=== PATIENT | female | born 1950 | race Caucasian/White ===

== ENCOUNTER 2018-07-26 14:06 | Emergency (ER) | payer MEDICARE, OTHER ==
--- NOTE | 2018-07-26 14:18 | EDM.PDOC ---
ED HPI GENERAL MEDICAL PROBLEM - General Chief Complaint: Lower Extremity Injury/Pain Stated Complaint: KNEE PAIN Time Seen by Provider: 07/26/18 14:11 Source of Information: Reports: Patient History Limitations: Reports: No Limitations - History of Present Illness INITIAL COMMENTS - FREE TEXT/NARRATIVE: History of present illness: []Patient complains of left knee pain is severe enough that she cannot walk on it. She's had a knee replacement in that knee 2 years ago in [facility] the [facility] by Dr. Nestor Kelley. 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 She thinks she may have twisted her knee at that time. Review of systems: As per history of present illness and below otherwise all systems reviewed and negative. Past medical history: As per history of present illness and as reviewed below otherwise noncontributory. Surgical history: As per history of present illness and as reviewed below otherwise noncontributory. Social history: No reported history of drug or alcohol abuse. Family history: As per history of present illness and as reviewed below otherwise noncontributory. Physical exam: General: Well developed, well nourished in NAD HEENT: Atraumatic, normocephalic, pupils reactive, negative for conjunctival pallor or scleral icterus, mucous membranes moist, throat clear, neck supple, nontender, trachea midline. Lungs: Clear to auscultation, breath sounds equal bilaterally, chest nontender. Heart: S1S2, regular, negative for clicks, rubs, or JVD. Abdomen: NABS, Soft, nondistended, nontender. Negative for masses or hepatosplenomegaly. Negative for costovertebral tenderness. Pelvis: Stable nontender. Genitourinary: Deferred. Rectal: Deferred. Extremities: Atraumatic, negative for cords or calf pain. Neurovascular unremarkable. Neuro: Awake, alert, oriented. Cranial nerves II through XII unremarkable. Cerebellum unremarkable. Motor and sensory unremarkable throughout. Exam nonfocal. Skin:warm and dry Diagnostics: X-ray left knee, WBC, sedimentation rate, CRP Therapeutics: Patient declined pain meds ED Course: Stable 16:11-consulted Dr. Lawler who will aspirate the knee in the ED. patient's white count from the knee aspirate reviewed by Dr. Lawler and he recommended she follow- up with her orthopedic surgeon this week. But does not need emergent transfer. Patient was informed and she will be able to follow-up with her doctor in his marked this week Impression: Left Knee pain Prescriptions: Declined patient states she has residual of opioids from the knee replacement Plan: Follow-up with your orthopedic surgeon in 1-2 days, return to ER immediately if symptoms worsen or change including, but not limited to, redness, swelling, increased pain or fevers. Definitive disposition and diagnosis as appropriate pending reevaluation and review of above. Left Knee Pain Score (Numeric/FACES): 8 - Related Data Allergies Allergy/AdvReac Type Severity Reaction Status Date / Time Sulfa (Sulfonamide Allergy Hives Verified 07/26/18 14:37 Antibiotics) Review of Systems - Review of Systems Review Of Systems: ROS reveals no pertinent complaints other than HPI. ED EXAM, GENERAL - Physical Exam Exam: See Below (See history of present illness) Course - Vital Signs Last Recorded V/S: Last Vital Signs Temp 98.6 F 07/26/18 14:32 Pulse 72 07/26/18 15:57 Resp 15 07/26/18 15:57 BP 115/75 07/26/18 15:57 Pulse Ox 92 L 07/26/18 15:57 - Orders/Labs/Meds Orders: Active Orders 24 hr Category Date Time Status CULTURE BODY FLUID + SMEAR [RM] Stat Lab 07/26/18 16:35 Received Labs: Laboratory Tests 07/26/18 07/26/18 07/26/18 Range/Units 14:56 14:56 14:56 WBC 17.30 H (4.0-11.0) K/uL RBC 3.62 L (4.30-5.90) M/uL Hgb 10.9 L (12.0-16.0) g/dL Hct 32.6 L (36.0-46.0) % MCV 90.1 (80.0-98.0) fL MCH 30.1 (27.0-32.0) pg MCHC 33.4 (31.0-37.0) g/dL RDW Std Deviation 44.6 (28.0-62.0) fl RDW Coeff of Amrit 14 (11.0-15.0) % Plt Count 307 (150-400) K/uL MPV 11.30 (7.40-12.00) fL Neut % (Auto) 83.7 H (48.0-80.0) % Lymph % (Auto) 8.4 L (16.0-40.0) % Mingo % (Auto) 7.7 (0.0-15.0) % Eos % (Auto) 0.1 (0.0-7.0) % Baso % (Auto) 0.1 (0.0-1.5) % Neut # (Auto) 14.5 H (1.4-5.7) K/uL Lymph # (Auto) 1.5 (0.6-2.4) K/uL Mingo # (Auto) 1.3 H (0.0-0.8) K/uL Eos # (Auto) 0.0 (0.0-0.7) K/uL Baso # (Auto) 0.0 (0.0-0.1) K/uL Nucleated RBC % 0.0 /100WBC Nucleated RBCs # 0 K/uL ESR 73 H (0-29) mm/hr C-Reactive Protein >12.00 (0.00-0.90) mg/dL Fluid Type Fluid Color Fluid Appearance Fluid WBC K/uL Fluid RBC M/uL Fluid Mononuclear Cell % Fl Polymorphonucl Cell % 07/26/18 Range/Units 16:35 WBC (4.0-11.0) K/uL RBC (4.30-5.90) M/uL Hgb (12.0-16.0) g/dL Hct (36.0-46.0) % MCV (80.0-98.0) fL MCH (27.0-32.0) pg MCHC (31.0-37.0) g/dL RDW Std Deviation (28.0-62.0) fl RDW Coeff of Amrit (11.0-15.0) % Plt Count (150-400) K/uL MPV (7.40-12.00) fL Neut % (Auto) (48.0-80.0) % Lymph % (Auto) (16.0-40.0) % Mingo % (Auto) (0.0-15.0) % Eos % (Auto) (0.0-7.0) % Baso % (Auto) (0.0-1.5) % Neut # (Auto) (1.4-5.7) K/uL Lymph # (Auto) (0.6-2.4) K/uL Mingo # (Auto) (0.0-0.8) K/uL Eos # (Auto) (0.0-0.7) K/uL Baso # (Auto) (0.0-0.1) K/uL Nucleated RBC % /100WBC Nucleated RBCs # K/uL ESR (0-29) mm/hr C-Reactive Protein (0.00-0.90) mg/dL Fluid Type SYN Fluid Color RED Fluid Appearance BLOODY Fluid WBC 1.05 K/uL Fluid RBC 0.11 M/uL Fluid Mononuclear Cell 16.7 % Fl Polymorphonucl Cell 83.3 % Departure - Departure Time of Disposition: 18:59 Disposition: Home, Self-Care 01 Condition: Good Clinical Impression: Knee pain, left - Discharge Information *PRESCRIPTION DRUG MONITORING PROGRAM REVIEWED*: No *COPY OF PRESCRIPTION DRUG MONITORING REPORT IN PATIENT AMISHA: No Referrals: PCP,None [Primary Care Provider] - Forms: ED Department Discharge Additional Instructions: The following information is given to patients seen in the emergency department who are being discharged to home. This information is to outline your options for follow-up care. We provide all patients seen in our emergency department with a follow-up referral. The need for follow-up, as well as the timing and circumstances, are variable depending upon the specifics of your emergency department visit. If you don't have a primary care physician on staff, we will provide you with a referral. We always advise you to contact your personal physician following an emergency department visit to inform them of the circumstance of the visit and for follow-up with them and/or the need for any referrals to a consulting specialist. The emergency department will also refer you to a specialist when appropriate. This referral assures that you have the opportunity for follow-up care with a specialist. All of these measure are taken in an effort to provide you with optimal care, which includes your follow-up. Under all circumstances we always encourage you to contact your private physician who remains a resource for coordinating your care. When calling for follow-up care, please make the office aware that this follow-up is from your recent emergency room visit. If for any reason you are refused follow-up, please contact the [facility] Emergency Department at and asked to speak to the emergency department charge nurse. Follow-up with your orthopedic surgeon Dr. Nestor Kelley this week in [facility]. The ER if symptoms worsen or change. - My Orders Last 24 Hours: My Active Orders 07/26/18 16:35 CULTURE BODY FLUID + SMEAR [RM] Stat - Assessment/Plan Last 24 Hours: My Active Orders 07/26/18 16:35 CULTURE BODY FLUID + SMEAR [RM] Stat
--- NOTE | 2018-07-26 15:22 | CR ---
EXAMINATION: Left knee HISTORY: Pain COMPARISON: None TECHNIQUE: 3 views FINDINGS/IMPRESSION: There is no acute osseous abnormality, dislocation, or fracture. Left total knee hardware is demonstrated position and alignment. No joint effusion or significant soft tissue swelling.
--- NOTE | 2018-07-27 13:06 | HP ---
DATE OF : 1950 PRIMARY CARE PHYSICIAN: None PCP SUBJECTIVE: The patient is a 67-year-old female, who underwent a left total knee replacement 2 years ago, and it was marked by Dr. Nestor Kelley. She was looking at her melanoma lesion on her left foot and may have twisted her knee at that time 2 days ago. She began having more pain yesterday with difficulty walking and ambulating. She had a history of UTI one month ago and took an antibiotic which may have been clindamycin, but she is unsure. She has no other pain in other joints. She has felt a little feverish. No other constitutional symptoms. PAST MEDICAL HISTORY: In the chart. PHYSICAL EXAMINATION: GENERAL: No apparent distress. Alert and oriented x3. HEENT: Mucous membranes moist. Sclerae anicteric. LUNGS: Equal and symmetric expansion. CARDIOVASCULAR: Regular rate and rhythm with 2+ dorsalis pedis pulses to the left lower extremity. EXTREMITIES: Left knee demonstrates some warmth to touch with no erythema. There is a small joint effusion. She has pain to range of motion and pain to palpation over the proximal tibia as well as over the knee joint. She has a stable ligamentous exam. There is no swelling distally. She has palpable pulses. Normal sensation and motor distally. IMAGING: X-rays of the left knee demonstrate a well-aligned cruciate retaining knee prosthesis. There were no signs of loosening. LABORATORY DATA: Demonstrates hemoglobin 10.9, white blood cell count 17.3 with 83.7% neutrophils. Her ESR is 73. Her CRP is greater than 12. After verbal informed consent to the left knee, the skin was prepped with ChloraPrep and alcohol. An 18-gauge needle was placed from the superolateral approach in the left knee, and approximately 20 mL of normal colored synovial fluid with some bloody tinge was expressed. This was then sent to the lab. A Band-Aid was placed. The synovial fluid demonstrates 1000 white blood cells with 83% neutrophils. ASSESSMENT: Left knee pain. PLAN: Her inflammatory markers are elevated. aspirate amount does not seem as though there was an active infection in the knee joint. This may be a severe synovitis. I recommended follow up with her doctor in the next several days. She will return to the ER if there are any increasing pain. All questions were answered today. CAMPBELL / LOUIS /[id number]
== END 2018-07-26 19:08 | disposition home or self-care (01) ==
LOC: MW.ED 14:06
DX: M25.562 Pain in left knee (principal); Z88.2 Allergy status to sulfonamides
CPT/HCPCS: 36415; 73562-26-LT; 73562-LT; 85025; 85652; 86140; 87070; 87205; 89050; 99283-25

== ENCOUNTER 2018-07-29 10:22 | Emergency (ER) | payer MEDICARE, OTHER ==
--- NOTE | 2018-07-29 10:36 | EDM.PDOC ---
ED HPI GENERAL MEDICAL PROBLEM - General Chief Complaint: Lower Extremity Injury/Pain Stated Complaint: SWELLING IN LEGS AND PAIN Time Seen by Provider: 07/29/18 10:23 Source of Information: Reports: Patient History Limitations: Reports: No Limitations - History of Present Illness INITIAL COMMENTS - FREE TEXT/NARRATIVE: History of present illness: []Patient had a knee swelling earlier this week was seen in the ER and Dr. BETANCOURT aspirated ruling out infection three-day cultures were negative. With her ortho surgeon in [place] also repeated the tap. She comes in today with lower legs redness, swelling and tenderness. Review of systems: As per history of present illness and below otherwise all systems reviewed and negative. Past medical history: As per history of present illness and as reviewed below otherwise noncontributory. Surgical history: As per history of present illness and as reviewed below otherwise noncontributory. Social history: No reported history of drug or alcohol abuse. Family history: As per history of present illness and as reviewed below otherwise noncontributory. Physical exam: General: Well developed, well nourished in NAD HEENT: Atraumatic, normocephalic, pupils reactive, negative for conjunctival pallor or scleral icterus, mucous membranes moist, throat clear, neck supple, nontender, trachea midline. Lungs: Clear to auscultation, breath sounds equal bilaterally, chest nontender. Heart: S1S2, regular, negative for clicks, rubs, or JVD. Abdomen: NABS, Soft, nondistended, nontender. Negative for masses or hepatosplenomegaly. Negative for costovertebral tenderness. Pelvis: Stable nontender. Genitourinary: Deferred. Rectal: Deferred. Extremities: Left knee with mild effusion, left leg erythema warmth and tenderness, negative for cords or calf pain. So pulses palpable Neurovascular unremarkable. Neuro: Awake, alert, oriented. Cranial nerves II through XII unremarkable. Cerebellum unremarkable. Motor and sensory unremarkable throughout. Exam nonfocal. Skin:warm and dry Diagnostics: Venous Doppler left lower extremity-negative DVT Therapeutics: Ceftriaxone ED Course: stable Impression: Cellulitis Left leg, UTI Prescriptions: Keflex Plan: Take meds as directed, follow up with your primary care physician, return to ER if symptoms worsen or change. Definitive disposition and diagnosis as appropriate pending reevaluation and review of above. Left leg Pain Score (Numeric/FACES): 8 - Related Data Allergies Allergy/AdvReac Type Severity Reaction Status Date / Time Sulfa (Sulfonamide Allergy Hives Verified 07/29/18 10:34 Antibiotics) Home Meds: Home Meds Cephalexin [Keflex] 500 mg PO TID #30 capsule 07/29/18 [Rx] Diclofenac Sodium [Voltaren] 75 mg PO BID 07/29/18 [History] Oxybutynin Chloride 5 mg PO DAILY 07/29/18 [History] Venlafaxine [Effexor] 75 mg PO DAILY 07/29/18 [History] hydroCHLOROthiazide [Hydrochlorothiazide] 25 mg PO DAILY 07/29/18 [History] Past Medical History Cardiovascular History: Reports: Hypertension Musculoskeletal History: Reports: Back Pain, Chronic - Infectious Disease History Infectious Disease History: Reports: Chicken Pox - Past Surgical History GI Surgical History: Reports: Appendectomy Musculoskeletal Surgical History: Reports: Knee Replacement Social & Family History - Family History Family Medical History: Noncontributory Review of Systems - Review of Systems Review Of Systems: ROS reveals no pertinent complaints other than HPI. ED EXAM, GENERAL - Physical Exam Exam: See Below (See history of present illness) Course - Vital Signs Last Recorded V/S: Last Vital Signs Temp 96.9 F 07/29/18 10:37 Pulse 89 07/29/18 10:37 Resp 16 07/29/18 10:37 BP 129/69 07/29/18 10:37 Pulse Ox 93 L 07/29/18 10:37 - Orders/Labs/Meds Orders: Active Orders 24 hr Category Date Time Status CULTURE URINE [RM] Routine Lab 07/29/18 11:31 Received Labs: Laboratory Tests 07/29/18 Range/Units 11:31 Urine Color YELLOW Urine Appearance CLEAR Urine pH 5.5 (5.0-8.0) Ur Specific [place] 1.010 (1.001-1.035) Urine Protein TRACE H (NEGATIVE) mg/dL Urine Glucose (UA) NEGATIVE (NEGATIVE) mg/dL Urine Ketones NEGATIVE (NEGATIVE) mg/dL Urine Occult Blood TRACE-INTACT H (NEGATIVE) Urine Nitrite NEGATIVE (NEGATIVE) Urine Bilirubin NEGATIVE (NEGATIVE) Urine Urobilinogen 0.2 (<2.0) EU/dL Ur Leukocyte Esterase SMALL H (NEGATIVE) Urine RBC 0-2 (0-2/HPF) Urine WBC 6-8 (0-5/HPF) Ur Epithelial Cells MODERATE (NONE-FEW) Urine Bacteria FEW (NEGATIVE) Meds: Medications Discontinued Medications Generic Name Dose Route Start Last Admin Trade Name Dionna PRN Reason Stop Dose Admin Ceftriaxone Sodium 1,000 mg/ 1 mls @ 1 mls/sec 07/29/18 11:08 07/29/18 11:37 Lidocaine HCl IM 07/29/18 11:09 1 mls/sec ONETIME ONE Administration Departure - Departure Time of Disposition: 12:55 Disposition: Home, Self-Care 01 Condition: Good Clinical Impression: Left leg cellulitis UTI (urinary tract infection) Qualifiers: Urinary tract infection type: site unspecified Hematuria presence: without hematuria Qualified Code(s): N39.0 - Urinary tract infection, site not specified - Discharge Information *PRESCRIPTION DRUG MONITORING PROGRAM REVIEWED*: No *COPY OF PRESCRIPTION DRUG MONITORING REPORT IN PATIENT AMISHA: No Prescriptions: Cephalexin [Keflex] 500 mg PO TID #30 capsule Referrals: PCP,Unknown [Primary Care Provider] - Forms: ED Department Discharge Additional Instructions: The following information is given to patients seen in the emergency department who are being discharged to home. This information is to outline your options for follow-up care. We provide all patients seen in our emergency department with a follow-up referral. The need for follow-up, as well as the timing and circumstances, are variable depending upon the specifics of your emergency department visit. If you don't have a primary care physician on staff, we will provide you with a referral. We always advise you to contact your personal physician following an emergency department visit to inform them of the circumstance of the visit and for follow-up with them and/or the need for any referrals to a consulting specialist. The emergency department will also refer you to a specialist when appropriate. This referral assures that you have the opportunity for follow-up care with a specialist. All of these measure are taken in an effort to provide you with optimal care, which includes your follow-up. Under all circumstances we always encourage you to contact your private physician who remains a resource for coordinating your care. When calling for follow-up care, please make the office aware that this follow-up is from your recent emergency room visit. If for any reason you are refused follow-up, please contact the [facility] Emergency Department at and asked to speak to the emergency department charge nurse. Take meds as directed, follow up with your primary care physician, return to ER if symptoms worsen or change. [facility] Primary [facility] [address] [place] [id number] - My Orders Last 24 Hours: My Active Orders 07/29/18 11:31 CULTURE URINE [RM] Routine - Assessment/Plan Last 24 Hours: My Active Orders 07/29/18 11:31 CULTURE URINE [RM] Routine
[2018-07-29] MEDS ORDERED: cefTRIAXone 1,000 MG in Lidocaine 1% 1 ML IM ONE (11:08)
--- NOTE | 2018-07-29 12:22 | US ---
INDICATION: Pain and redness of left calf. Knee replacement 2 years ago. COMPARISON: None. TECHNIQUE: A compression venous ultrasound exam was performed of the left lower extremity using felipe-scale imaging, color Doppler and spectral Doppler analysis. FINDINGS: Sonographic imaging of the left lower extremity demonstrates normal compressibility and color Doppler venous blood flow within the common femoral vein, deep femoral vein, and the proximal greater saphenous vein. Within the thigh, the femoral vein is patent and compressible. At a lower level, the popliteal and posterior tibial veins also show normal compressibility and color Doppler venous blood flow. Limited imaging of the contralateral groin demonstrates a normal spectral waveform and color Doppler venous blood flow within the right common femoral vein. IMPRESSION: Normal venous ultrasound exam. No evidence of deep vein thrombosis within the left lower extremity. Dictated by Coleen Hussein MD @ Jul 29 2018 12:19PM Signed by Dr. Coleen Hussein @ Jul 29 2018 12:20PM
== END 2018-07-29 13:10 | disposition home or self-care (01) ==
LOC: MW.ED 10:22
DX: L03.116 Cellulitis of left lower limb (principal); N39.0 Urinary tract infection, site not specified; I10 Essential (primary) hypertension; Z79.899 Other long term (current) drug therapy; Z88.2 Allergy status to sulfonamides
CPT/HCPCS: 81001; 87086; 93971; 96372; 99284; J0696; J2001